=== PATIENT | male | born 1955 | race Caucasian/White ===

== ENCOUNTER 2020-07-09 10:26 | Day surgery (SDC) | payer MEDICARE, MEDICAID, SELFPAY ==
--- NOTE | 2020-07-09 10:34 | ANES.PREANE2 ---
Pre-Anesthetic Assessment Pre-Anesthetic Assessment: Height/Weight: Height 1.8 m Preop Diagnosis: screening Proposed Procedure: Operation Date: 07/09/20 11:30 Proposed Procedures p Colonoscopy 48989 Z12.11(Not Applicable) - Akbar Mcgraw MD Familial anesthetic complications: none Was Beta Edie taken within 24 hours: N/A Was Clonidine taken within 24 hours: N/A Last intake: > 8 hrs Social: Social History: No alcohol and No tobacco Exam: Pre-Anes Outpt Exam: alert, oriented x 3, clear to auscultation bilaterally and regular rate & rhythm Airway: Cervical ROM: WNL MP: 2 Dentition: False Pulmonary: Pulmonary: COPD Hepatic: Hepatic: Hepatitis (C) GI: GI: GERD (occossional) Anesthetic Plan: ASA status: 2 Anesthesia: MAC Risk of > 500 ml blood loss (7ml/kg in children): No PFSH Anesthesia PFSH: Medical History (Updated 06/18/20 @ 14:22 by Akbar Mcgraw MD) Hepatitis C Surgical History (Updated 06/18/20 @ 14:27 by Akbar Mcgraw MD) History of colonoscopy History of nasal surgery History of open reduction and internal fixation (ORIF) procedure Left femur Data Anesthesia Cardiac Studies: No Data to Display
[2020-07-09 10:59] VITALS: BMI 25.1
[2020-07-09 11:24] VITALS: BP 123/97; PULSE 88; RESP 16; TEMP 36.8; O2SAT 97
[2020-07-09] MEDS: sodium chloride 0.9% 1,000 ML 30 ML IV (11:26)
--- NOTE | 2020-07-09 11:56 | W.PM.OPSUD ---
Surgery/Procedure H&P Update DATE OF PROCEDURE: July 09, 2020 DATE H&P PERFORMED: 06/18/20 H&P UPDATE INFORMATION: I have reviewed H&P completed within last 30 days, I have examined patient prior to procedure and No changes to prior documentation PREOP DIAGNOSIS: screening colonoscopy PLANNED PROCEDURE: Operation Date: 07/09/20 11:30 Proposed Procedures p Colonoscopy 23614 Z12.11(Not Applicable) - Akbar Mcgraw MD
[2020-07-09 12:33] VITALS: BP 180/100; PULSE 86; RESP 16; TEMP 36.7; O2SAT 97
[2020-07-09 12:43] VITALS: BP 179/90; PULSE 70; RESP 18; TEMP 36.6; O2SAT 98
--- NOTE | 2020-07-09 19:01 | ANE.PACU2 ---
Inpatient post-anesthesia follow up: Airway intact: Yes Vital signs: Temperature 97.9 F Pulse Rate 70 Respiratory Rate 18 Blood Pressure 179/90 Pulse Oximetry 98 Oxygen Delivery Me thod Room Air Oxygen Flow Rate Fraction of Inspir ed Oxygen Hydration adequate: Yes Nausea and vomiting: No Pain level: 2 Mental status: Baseline
== END 2020-07-09 13:25 | disposition home or self-care (01) ==
PROVIDERS: Visit Provider Surgery
PROC: 0DJD8ZZ Inspection of Lower Intestinal Tract, Via Natural or Artificial Opening Endoscopic (ICD-10-PCS; CPT 45378; principal; 2020-07-09 11:30)
DX: Z12.11 Encounter for screening for malignant neoplasm of colon (principal); D12.4 Benign neoplasm of descending colon; K57.30 Diverticulosis of large intestine without perforation or abscess without bleeding; J44.9 Chronic obstructive pulmonary disease, unspecified; B19.20 Unspecified viral hepatitis C without hepatic coma; K21.9 Gastro-esophageal reflux disease without esophagitis
CPT/HCPCS: 45385; 88305; 96360; 96361; J2704; J7030